=== PATIENT | male | born 1950 | race Caucasian/White ===

== ENCOUNTER → 2016-12-27 | Outpatient (CLI) | payer MEDICARE, BC ==
--- NOTE | 2017-01-04 19:30 | ECHO ---
The echocardiogram report can be seen in this patient's EMR in the Reports section. DENNIS
== END ==
LOC: MW.US 12:45
PROVIDERS: ATTEND Internal Medicine Interventional Cardiology
DX: I42.2 Other hypertrophic cardiomyopathy (principal)
CPT/HCPCS: 93306